=== PATIENT | female | born 2000 | race Two or more races ===

== ENCOUNTER 2024-06-19 20:38 | Observation (INO) | payer SELFPAY ==
[~2024-06-19] VITALS: Ht 160 cm; Wt 59.9 kg
[2024-06-19] MEDS: TERBUTALINE SULFATE 1 MG/ML 1ML VIAL SC ONE (21:42)
== END 2024-06-19 22:22 | disposition home or self-care (01) ==
LOC: LDRP 20:38
PROVIDERS: ADMIT Obstetrics & Gynecology; ATTEND Obstetrics & Gynecology
DX: O26.892 Other specified pregnancy related conditions, second trimester (principal); R10.9 Unspecified abdominal pain; Z3A.27 27 weeks gestation of pregnancy; Z87.891 Personal history of nicotine dependence
CPT/HCPCS: 59025; 81002; 94760; 96372; G0378; J3105

== ENCOUNTER → 2024-06-19 | Emergency (ER) | payer SELFPAY ==
--- NOTE | 2024-06-20 08:40 | DVHDS2 ---
Physician Discharge Progress N Final Diagnosis: abd pain Operations or Procedures: Operations or Procedures nst,sono Condition on Discharge: Good Disposition: Home Discharge Instructions: Diet: Regular Activity: No Restrictions, As Tolerated Medications: na Follow Up Care: Specialist: 3d Discharge Statement: "Patient was advised to return to the ER or call 911 if any headaches, dizziness, shortness of breath, chest pain, abdominal pain, bleeding, fevers, or worsening of medical condition. Patient was counseled about treatment plan, medications, possible side effects, patientverbalized understanding. All questions were answered to the best of my ability. This discharge took greater then 30 minutes in planning, reviewing documentation, counseling the patient, and discussing with other team members." PETERSON HERNANDEZ DO Jun 20, 2024 08:40
== END | disposition left against medical advice (07) ==
LOC: ER 20:11
DX: R10.9 Unspecified abdominal pain (principal); Z53.21 Procedure and treatment not carried out due to patient leaving prior to being seen by health care provider